=== PATIENT | male | born 1975 | race Caucasian/White ===

== ENCOUNTER 2024-09-10 11:42 | Emergency (ER) | payer MEDICAID, OTHER ==
[~2024-09-10] VITALS: Ht 177.8 cm; Wt 74.3 kg
--- NOTE | 2024-09-10 12:06 | ED.PDOC ---
General HPI Comments HPI: Poor Historian. 48-year-old male presents to the emergency department a elevation of acute on chronic right testicular discomfort pain. Patient denies any other urinary symptoms. Denies any history of STDs. Denies any trauma. He had this for few months but has been getting worse lately. Denies any penile discharge denies difficulty urinating. Vitals: temp: 99.3 RR: 16 02 sat: 97 % RA heart rate: 102 BP: 132.97 PMH: asthma, schizoaffective, bipolar PSH: denies social history: endorses tobacco use, denies ETOH use, denies drug use medications: denies allergies: NKDA REVIEW OF SYSTEMS: CONSTITUTIONAL: Denies acute: fever, diaphoresis, chills, generalized weakness. HEAD: Denies acute: headache, photophobia Eyes: Denies acute: Double vision, vision loss, eye pain, eye discharge. EARS: Denies acute: tinnitus, hearing loss, ear discharge, ear pain, THROAT: Denies acute: sore throat, swelling, difficulty swallowing , pain with swallo wing, change in voice. NECK: Denies acute: neck pain, neck swelling, stiff neck. HEART: Denies acute : chest pain, palpitations, LUNGS: Denies acute: SOB, wheezing, cough, hemoptysis ABDOMEN: Denies acute: abdominal pain, Nausea, Vomiting, diarrhea, melena , hematemesis, hematochezia SKIN: Denies acute: rash, redness, lesions, itchiness. EXTREMITIES: Denies acute: calf pain, numbness, tingling, weakness, denies pain in extremity. Denies acute: Low back pain. Neuro: Denies acute: focal neurological deficit, motor or sensory focal neurological deficit, tremors, seizure like activity, confusion, dizziness, change in mental status, loss of bowel or bladder function, cauda equina like symptoms. : Denies acute: dysuria, hematuria, flank pain, increase in urinary frequency. PSYCH: Denies acute: hallucination, suicidal ideation, homicidal ideation. PHYSICAL EXAM: General: no acute distress, awake and alert. Head: normocephalic, atraumatic. Neck: supple, trachea is midline, no swelling. Throat: Normal phonation. Eyes:, no erythema, no purulent discharge, no proptosis, no icterus. Heart: regular rate, regular rhythm, no significant murmur appreciated. Lungs: no apparent respiratory distress, Able to speak in full sentences. No wheezing, no rhonchi, no crackles. No stridors Clear to auscultation bilaterally. Abdomen: non tender to palpation, non distended, soft, no guarding, no rebound, + bowel sounds. : Normal-appearing external male genitalia circumcised. Palpation of the testicles is nontender to palpation. No crepitus. No erythema. No discharge. Patient points to a specific part of his right scrotal sac that is somewhat of a nodule of the scrotal skin itself not involving the testicle. Neuro: Awake, Alert, oriented to name, self, situation, follows commands GCS=15. Speech is normal. Skin: no petechia, no purpura, no cyanosis, non-pale, not jaundice. Lower extremities: --no - Pitting edema no deformity, no focal swelling, no calf TTP. Makes eye contact. moves all four extremities. Face: no apparent facial droop. Ambulating in the ED independently. Time Seen by MD: 11:47 Reviewed notes: Nurses Notes Allergies: Coded Allergies: NO KNOWN ALLERGIES (Unverified , 09/10/24) Information Source: Patient Mode of Arrival: Ambulatory Brought in by: self Past Medical History PAST MEDICAL HISTORY: Schizophrenia Surgical History: Denies all surgeries Family History Family History: Reviewed,noncontributory to illness Social History Smoker: Cigarettes Alcohol: Denies ETOH Use Drugs: Denies Drug Use Lives In: Home Was a procedure done? Was a procedure done?: No Differential Diagnosis Kidney stone (Female): N/A Penile/Scrotal: Epidiymitis, Foreign Body, Prostatitis, STD, UTI, Fractured Penis, Phimosis, Hydrocele, Testicular Torsion, Urolithiasis, Urinary Retention Urinary Problem (Male): Epididymitis, Prostatitis, Plelonephritis Other Differential Diagnosis Hydrocele, cyst, abscess, Guera gangrene, necrotizing fasciitis. X-Ray, Labs, Meds, VS Vital Signs Date Time Temp Pulse Resp B/P (MAP) Pulse Ox O2 Delivery O2 Flow Rate FiO2 09/10/24 16:42 98.2 97 19 137/90 (106) 99 98.2 09/10/24 15:03 98.2 100 19 148/93 (111) 99 98.2 11/19/24 12:18 99.3 102 16 132/97 (109) 97 Lab Test 09/10/24 13:59 09/10/24 13:29 09/10/24 12:05 Range/Units Lactic Acid Level 2.0 2.5 *H 0.4-2.0 mmol/L Urine Color Yellow Yellow Urine Clarity Clear Clear Urine pH 5.5 5.0-9.0 Urine Specific [place] 1.027 1.001-1.035 Urine Protein Trace H Negative Urine Ketones Trace Negative Urine Blood Negative Negative /uL Urine Nitrite Negative Negative Urine Bilirubin Negative Negative Urine Urobilinogen Normal Negative mg/dL Urine Leukocyte Esterase Negative Negative /uL Urine RBC 1 0 - 3 /hpf Urine WBC 1 0 - 3 /hpf Urine Squamous Epithelial Cells None seen <5 /hpf Urine Bacteria None seen None Seen /hpf Urine Mucus Few None Seen Urine Glucose Normal Normal mg/dL Chlamydia trachomatis (DIANE) Pending Neisseria gonorrhoeae (DIANE) Pending White Blood Count 7.7 4.4-10.8 10^3/uL Red Blood Count 4.93 4.5-5.90 10^6/uL Hemoglobin 14.3 13.5-17.5 g/dL Hematocrit 41.1 41.0-53.0 % Mean Corpuscular Volume 83.3 80.0-100.0 fL Mean Corpuscular Hemoglobin 29.0 28.0-32.0 pg Mean Corpuscular Hemoglobin Concent 34.8 32.0-36.0 g/dL Red Cell Distribution Width 13.0 11.8-14.3 % Platelet Count 255 140-450 10^3/uL Mean Platelet Volume 7.5 6.9-10.8 fL Neutrophils (%) (Auto) 56.3 37.0-80.0 % Lymphocytes (%) (Auto) 37.9 10.0-50.0 % Monocytes (%) (Auto) 5.2 0.0-12.0 % Eosinophils (%) (Auto) 0.2 0.0-7.0 % Basophils (%) (Auto) 0.4 0.0-2.0 % Neutrophils # (Auto) 4.3 1.6-8.6 10 ^3/uL Lymphocytes # (Auto) 2.9 0.4-5.4 10 ^3/uL Monocytes # (Auto) 0.4 0-1.3 10 ^3/uL Eosinophils # (Auto) 0 0-0.8 10 ^3/uL Basophils # (Auto) 0 0-0.2 10 ^3/uL Nucleated Red Blood Cells 0.1 % Sodium Level 141 136-145 mmol/L Potassium Level 3.2 L 3.5-5.1 mmol/L Chloride Level 107 98-107 mmol/L Carbon Dioxide Level 23 20-31 mmol/L Anion Gap 11 5-15 Blood Urea Nitrogen 8 L 9-23 mg/dL Creatinine 0.88 0.700-1.30 mg/dL Glomerular Filtration Rate Calc 107 >90 mL/min BUN/Creatinine Ratio 9.1 L 10.0-20.0 Serum Glucose 143 H 74-106 mg/dL Calcium Level 9.6 8.7-10.4 mg/dL Total Bilirubin 0.9 0.2-1.0 mg/dL Aspartate Amino Transferase (AST) 15 13-40 U/L Alanine Aminotransferase (ALT) 14 7-40 U/L Alkaline Phosphatase 66 46-116 U/L Total Protein 7.5 5.7-8.2 g/dL Albumin 4.7 3.2-4.8 g/dL Current Medications Medications (Trade) Dose Ordered Sig/Julius Route Start Time Stop Time Status Last Admin Potassium Chloride (Klor-Con Tablet) 40 meq ONCE ONCE PO 09/10/24 14:30 09/10/24 14:44 DC 09/10/24 15:59 Sodium Chloride 1,000 ml @ 1,000 mls/hr Q1H ONCE IV 09/10/24 14:30 09/10/24 15:29 DC 09/10/24 15:58 [place] [address] Ph: [phone] DIAGNOSTIC IMAGING Diagnostic Imaging Report : [id number] Signed PATIENT: KALYN TEMPLE ACCT: [id number] UNIT: [id number] : 1975 LOC: ER ROOM / BED: / AGE / SEX: 48 / M ADM STATUS: REG ER SERVICE 1216 ORDERING PHYSICIAN: LONG BOWERS DO PROCEDURE(s): TESUS - TESTICULAR ULTRASOUND REASON: testicular swelling ORDER NUMBER(s): [id number], ACCESSION NUMBER(s): [id number] ULTRASOUND OF SCROTUM AND CONTENTS. INDICATION: testicular swelling COMPARISON: None TECHNIQUE: Multiple real-time grayscale sonographic and color and duplex Doppler images of the scrotum and its contents were obtained. FINDINGS: The right testicle measures 4.0 x 3.0 x 3.1 cm. The left testicle measures 3.9 x 2.5 x 3.0 cm. Both testicles demonstrate homogeneous echotexture without evidence of focal lesions. The right epididymis measures 1.1 cm. The left epididymis measures 1.1 cm. Subsequent color and duplex Doppler interrogation of the testes demonstrated symmetric normal vascular flow to both testicles. No focal areas of hyperemia were seen. IMPRESSION: 1. No evidence of torsion, epididymitis, and/or orchitis. ATED BY: GUTIERREZ SWAN MD DICTATED DATE/TIME: 09/10/24 1248 SIGNED BY: GUTIERREZ SWAN MD SIGNED DATE/TIME: 09/10/24 1248 CC: Time of 1ST Reevaluation: 23:02 Reevaluation 1ST: Improved Patient Education/Counseling: Diagnosis, Treatment Family Education/Counseling: No Family Present Comments Patient presented with the above HPI.---testicular complaint---workup was initiated. patient was found with the above mentioned diagnosis. Patient was given: Fluids and potassium replacement Patient ED course and VS have been stabilized. Patient has been reassessed in the ED and remained in a stable condition. Pertinent incidental findings were discussed with the patient and/or family. Patient/family voices understanding and is agreeable with plan. Patient has been observed in the ED adequate length of time to insure improvement/stability. patient was discharged home in a stable condition. Urine chlamydia gonorrhea results are still pending All the reports of any imaging studies that were ordered by myself were reviewed by myself. Departure 1 Departure Time of Disposition: 15:17 Impression: Primary Impression: Scrotal cyst Additional Impression: Hypokalemia Disposition: 01 HOME / SELF CARE / HOMELESS Condition: Stable Additional Instructions: Additional discharge instructions: You MUST follow-up with your primary care/family doctor in 1 to 2 days. If you are unable to see your primary care/family doctor, please return to our emergency room for re-assessment and re-evaluation in 1 to 2 days. Return to the emergency room here in our facility or to the nearest ER [facility] if your symptoms change or worsen. CONSULTATIONS: you MUST Follow-up for consultation as soon as possible with: -urology in 1-2 days. Please call for appointment. You MUST call the consultants office yourself to make an appointment. You may need to arrange that through your insurance and/or your primary/family doctor. If you are unable to see the art sales consultant in 1 to 2 days, you must return to our emergency room (or any other ER of your choice) for re-assessment and re- evaluation. Adequate fluid hydration. Below is a copy of your radiological report for follow up: [place] [address] Ph: [phone] DIAGNOSTIC IMAGING Diagnostic Imaging Report : [id number] Signed PATIENT: KALYN TEMPLE ACCT: [id number] UNIT: [id number] : 1975 LOC: ER ROOM / BED: / AGE / SEX: 48 / M ADM STATUS: REG ER SERVICE 1216 ORDERING PHYSICIAN: LONG BOWERS DO PROCEDURE(s): TESUS - TESTICULAR ULTRASOUND REASON: testicular swelling ORDER NUMBER(s): [id number], ACCESSION NUMBER(s): [id number] ULTRASOUND OF SCROTUM AND CONTENTS. INDICATION: testicular swelling COMPARISON: None TECHNIQUE: Multiple real-time grayscale sonographic and color and duplex Doppler images of the scrotum and its contents were obtained. FINDINGS: The right testicle measures 4.0 x 3.0 x 3.1 cm. The left testicle measures 3.9 x 2.5 x 3.0 cm. Both testicles demonstrate homogeneous echotexture without evidence of focal lesions. The right epididymis measures 1.1 cm. The left epididymis measures 1.1 cm. Subsequent color and duplex Doppler interrogation of the testes demonstrated symmetric normal vascular flow to both testicles. No focal areas of hyperemia were seen. IMPRESSION: 1. No evidence of torsion, epididymitis, and/or orchitis. ATED BY: GUTIERREZ SWAN MD DICTATED DATE/TIME: 09/10/24 1248 SIGNED BY: GUTIERREZ SWAN MD SIGNED DATE/TIME: 09/10/24 1248 CC: Discharged With: Self Critical Care Note Critical Care Time?: No I personally scribed for LONG BOWERS DO ([email or web address]) on 09/10/24 at 12:06. Electronically submitted by Emil Hopkins ([facility] I personally scribed for LONG BOWERS DO ([email or web address]) on 09/10/24 at 13:05. Electronically submitted by Emil Hopkins ([facility] I personally scribed for LONG BOWERS DO ([email or web address]) on 09/10/24 at 13:12. Electronically submitted by Emil Hopkins ([facility]). I personally scribed for LONG BOWERS DO ([email or web address]) on 09/10/24 at 14:53. Elect ronically submitted by Emil Hopkins ([facility] LONG BOWERS DO Sep 10, 2024 12:06
[2024-09-10 12:31] LABS: Basophils # (auto) 0 10 ^3/uL (0-0.2); Basophils % (auto) 0.4 % (0.0-2.0); Eosinophils # (auto) 0 10 ^3/uL (0-0.8); Eosinophils % (auto) 0.2 % (0.0-7.0); Hematocrit 41.1 % (41.0-53.0); Hemoglobin 14.3 g/dL (13.5-17.5); Lymphocytes # (auto) 2.9 10 ^3/uL (0.4-5.4); Lymphocytes % (auto) 37.9 % (10.0-50.0); Mean Corpuscular Hgb Conc. 34.8 g/dL (32.0-36.0); Mean Corpuscular Volume 83.3 fL (80.0-100.0); Monocytes # (auto) 0.4 10 ^3/uL (0-1.3); Monocytes % (auto) 5.2 % (0.0-12.0); Neutrophils # (auto) 4.3 10 ^3/uL (1.6-8.6); Neutrophils % (auto) 56.3 % (37.0-80.0); Nucleated Red Blood Cells % 0.1 %; Platelet Count (auto) 255 10^3/uL (140-450); Red Blood Cells 4.93 10^6/uL (4.5-5.90); White Blood Cell 7.7 10^3/uL (4.4-10.8)
[2024-09-10 12:44] LABS: Albumin 4.7 g/dL (3.2-4.8); Alkaline Phosphatase 66 U/L (46-116); Anion Gap 11 (5-15); Aspartate Aminotransferase 15 U/L (13-40); BUN/Creatinine Ratio 9.1 (10.0-20.0); Blood Urea Nitrogen 8 mg/dL (9-23); Calcium 9.6 mg/dL (8.7-10.4); Carbon Dioxide 23 mmol/L (20-31); Chloride 107 mmol/L (98-107); Glucose 143 mg/dL (74-106); Potassium 3.2 mmol/L (3.5-5.1); Sodium 141 mmol/L (136-145)
[2024-09-10 12:45] LABS: Bilirubin, Total 0.9 mg/dL (0.2-1.0); Total Protein 7.5 g/dL (5.7-8.2)
--- NOTE | 2024-09-10 12:50 | DVH ---
ULTRASOUND OF SCROTUM AND CONTENTS. INDICATION: testicular swelling COMPARISON: None TECHNIQUE: Multiple real-time grayscale sonographic and color and duplex Doppler images of the scrotu m and its contents were obtained. FINDINGS: The right testicle measures 4.0 x 3.0 x 3.1 cm. The left testicle measures 3.9 x 2.5 x 3.0 cm. Both testicles demonstrate homogeneous echotexture without evidence of focal lesions. The right epididymis measures 1.1 cm. The left epididymis measures 1.1 cm. Subsequent color and duplex Doppler interrogation of the testes demonstrated symmetric normal vascula r flow to both testicles. No focal areas of hyperemia were seen. IMPRESSION: 1. No evidence of torsion, epididymitis, and/or orchitis.
[2024-09-10 12:52] LABS: Lactic Acid w/Reflex 2.5 mmol/L (0.4-2.0)
[2024-09-10 13:12] LABS: Alanine Aminotransferase 14 U/L (7-40)
[2024-09-10 13:51] LABS: Urine Bacteria None Seen /hpf (None Seen)
[2024-09-10 14:13] LABS: Urine Blood Negative /uL (Negative); Urine Clarity Clear (Clear); Urine Color Yellow (Yellow); Urine Mucus FEW (None Seen); Urine Protein, UAD TRACE (Negative); Urine Specific Gravity 1.027 (1.001-1.035); Urine Urobilinogen Normal (Negative); Urine WBC 1 /hpf (0 - 3); Urine pH 5.5 (5.0-9.0)
[2024-09-10] MEDS: SODIUM CHLORIDE 0.9% 1,000 ML IV ONE (15:58)
[2024-09-10] MEDS: POTASSIUM CHL 20 Meq TABLET PO ONE (15:59)
[2024-09-10 16:42] VITALS: BP 137/90; PULSE 97; RESP 19; TEMP 98.2; O2SAT 99
== END 2024-09-10 16:42 | disposition home or self-care (01) ==
LOC: ER 11:42
DX: L72.9 Follicular cyst of the skin and subcutaneous tissue, unspecified (principal); E87.6 Hypokalemia; J45.909 Unspecified asthma, uncomplicated; Z88.8 Allergy status to other drugs, medicaments and biological substances
CPT/HCPCS: 36415; 76870; 80053; 81001; 83605; 85025; 87491; 87591; 96360; 99284; J7030

== ENCOUNTER 2024-09-16 15:42 | Emergency (ER) | payer MEDICAID ==
[~2024-09-16] VITALS: Ht 177.8 cm; Wt 80.0 kg
--- NOTE | 2024-09-16 16:25 | ED.PDOC ---
Psychiatric HPI Comments PMHx: Asthma, schizophrenia, depression, bipolar disorder PSHx: sinus surgery Social hx: Pt drinks alcohol occasionally, smokes cigarettes, and uses meth. Meds: Zoloft Allergies: NKDA. Vitals T: 98.6F RR: 18 HR: 118 BP: 124/90 O2: 100% on RA HPI: Poor Historian. 48-year-old male brought in by ambulance because he called 911 for suicidal ideation with a plan to jump in traffic. Patient has history of mental illness his schizoaffective bipolar depression and he states he is compliant with his medications. Denies any visual hallucination but states having some auditory hallucinations. Patient used methamphetamine most recently last night. REVIEW OF SYSTEMS: CONSTITUTIONAL: Denies acute: fever, diaphoresis, chills, generalized weakness. HEAD: Denies acute: headache, photophobia Eyes: Denies acute: Double vision, vision loss, eye pain, eye discharge. EARS: Denies acute: tinnitus, hearing loss, ear discharge, ear pain, THROAT: Denies acute: sore throat, swelling, difficulty swallowing , pain with swallowing, change in voice. NECK: Denies acute: neck pain, neck swelling, stiff neck. HEART: Denies acute : chest pain, palpitations, LUNGS: Denies acute: SOB, wheezing, cough, hemoptysis ABDOMEN: Denies acute: abdominal pain, Nausea, Vomiting, diarrhea, melena , hematemesis, hematochezia SKIN: Denies acute: rash, redness, lesions, itchiness. EXTREMITIES: Denies acute: calf pain, numbness, tingling, weakness, denies pain in extremity. Denies acute: Low back pain. Neuro: Denies acute: focal neurological deficit, motor or sensory focal neurological deficit, tremors, seizure like activity, confusion, dizziness, change in mental status, loss of bowel or bladder function, cauda equina like symptoms. : Denies acute: dysuria, hematuria, flank pain, increase in urinary frequency. PSYCH: Denies acute: homicidal ideation. PHYSICAL EXAM: General: no acute distress, awake and alert. Head: normocephalic, atraumatic. Neck: supple, trachea is midline, no swelling. Throat: Normal phonation. Eyes:, no erythema, no purulent discharge, no proptosis, no icterus. Heart: regular tachycardia, no significant murmur appreciated. Lungs: no apparent respiratory distress, Able to speak in full sentences. No wheezing, no rhonchi, no crackles. No stridors Clear to auscultation bilaterally. Abdomen: non tender to palpation, non distended, soft, no guarding, no rebound, + bowel sounds. Neuro: Awake, Alert, oriented to name, self, situation, follows commands GCS=15. Speech is normal. Skin: no petechia, no purpura, no cyanosis, non-pale, not jaundice. Lower extremities: --no - Pitting edema no deformity, no focal swelling, no calf TTP. Makes eye contact. moves all four extremities. Face: no apparent facial droop. Chief Complaint: Suicidal Time Seen by MD: 15:45 Primary Care Provider: NONE Information Source: Patient, Emergency Med Personnel Mode of Arrival: EMS Severity: Unable to Care for Self Severity of Pain: None Severity of Mental Status: Moderate Severity of Symptoms: Moderate Timing: Hours Duration: Since onset Presents with: Depression, Suicidal Ideation, Other Attempt: Other Circumstance: Other Current substance abuse: ETOH, Amphetamines, Other History of: Depression, Schizophrenia, Bipolar Quality: Other Associated signs and symptoms: Depression, Hopeless, Anxiety, Amphetamines, Other Past Medical History PAST MEDICAL HISTORY: Asthma, Depression, Schizophrenia Past Medical History (Other): Bipolar Surgical History (Other): sinus surgery Family History Family History: Reviewed,noncontributory to illness Social History Smoker: Cigarettes Alcohol: Occasionally Drugs: Methamphetamine Lives In: Home Psych Differential Dx Psych. Differential Dx: Anxiety, Bipolar Disorder, Depression, Hopeless, N/A, No symptoms Reported, Panic Disorder, Schizoprenia, Sleepless, Suicidal OD Differential Dx: Alcohol Abuse, Conversion Disorder, Drug Overdose, Hallucinations, Homicidal, Panic Disorder, Personality Disorder, Schizophrenia, Substance Abuse, Suicidal Gesture X-Ray, Labs, Meds, VS Vital Signs Date Time Temp Pulse Resp B/P (MAP) Pulse Ox O2 Delivery O2 Flow Rate FiO2 09/16/24 19:30 98 16 99 Room Air* 0 21 09/16/24 19:30 98.0 98 16 127/88 (101) 99 98.0 09/16/24 15:55 98.6 118 18 124/90 (101) 100 Lab Test 09/16/24 22:39 09/16/24 17:41 09/16/24 15:54 Range/Units Lactic Acid Level 1.6 4.3 *H 0.4-2.0 mmol/L White Blood Count 11.2 #H 4.4-10.8 10^3/uL Red Blood Count 5.74 4.5-5.90 10^6/uL Hemoglobin 16.5 # 13.5-17.5 g/dL Hematocrit 49.2 # 41.0-53.0 % Mean Corpuscular Volume 85.6 80.0-100.0 fL Mean Corpuscular Hemoglobin 28.8 28.0-32.0 pg Mean Corpuscular Hemoglobin Concent 33.6 32.0-36.0 g/dL Red Cell Distribution Width 13.4 11.8-14.3 % Platelet Count 344 140-450 10^3/uL Mean Platelet Volume 7.3 6.9-10.8 fL Neutrophils (%) (Auto) 55.1 37.0-80.0 % Lymphocytes (%) (Auto) 37.2 10.0-50.0 % Monocytes (%) (Auto) 7.1 0.0-12.0 % Eosinophils (%) (Auto) 0.2 0.0-7.0 % Basophils (%) (Auto) 0.4 0.0-2.0 % Neutrophils # (Auto) 6.1 1.6-8.6 10 ^3/uL Lymphocytes # (Auto) 4.2 0.4-5.4 10 ^3/uL Monocytes # (Auto) 0.8 0-1.3 10 ^3/uL Eosinophils # (Auto) 0 0-0.8 10 ^3/uL Basophils # (Auto) 0 0-0.2 10 ^3/uL Nucleated Red Blood Cells 0.2 % Sodium Level 141 136-145 mmol/L Potassium Level 4.6 3.5-5.1 mmol/L Chloride Level 104 98-107 mmol/L Carbon Dioxide Level 22 20-31 mmol/L Anion Gap 15 5-15 Blood Urea Nitrogen 12 9-23 mg/dL Creatinine 1.35 H 0.700-1.30 mg/dL Glomerular Filtration Rate Calc 66 >90 mL/min BUN/Creatinine Ratio 8.9 L 10.0-20.0 Serum Glucose 98 74-106 mg/dL Calcium Level 11.0 H 8.7-10.4 mg/dL Magnesium Level 2.3 1.6-2.6 mg/dL Total Bilirubin 1.4 H 0.2-1.0 mg/dL Aspartate Amino Transferase (AST) 16 13-40 U/L Alanine Aminotransferase (ALT) 16 7-40 U/L Alkaline Phosphatase 84 46-116 U/L Troponin I High Sensitivity 3 L </=54 ng/L Total Protein 8.2 5.7-8.2 g/dL Albumin 5.3 H 3.2-4.8 g/dL Salicylates Level < 3.0 -30 mg/dL Acetaminophen Level < 2.0 L 10.0-20.0 UG/ML Urine Color Yellow Yellow Urine Clarity Clear Clear Urine pH 7.5 5.0-9.0 Urine Specific [place] 1.016 1.001-1.035 Urine Protein Trace H Negative Urine Ketones Trace Negative Urine Blood Negative Negative /uL Urine Nitrite Negative Negative Urine Bilirubin Negative Negative Urine Urobilinogen Normal Negative mg/dL Urine Leukocyte Esterase Negative Negative /uL Urine RBC 1 0 - 3 /hpf Urine WBC 4 0 - 3 /hpf Urine Squamous Epithelial Cells None seen <5 /hpf Urine Bacteria Few H None Seen /hpf Urine Hyaline Casts Few 0 - 2 /lpf Urine Glucose Normal Normal mg/dL Urine Opiates Screen Neg NEGATIVE Urine Fentanyl Screen Neg NEGATIVE Urine Barbiturates Screen Neg NEGATIVE Urine Phencyclidine Screen Neg NEGATIVE Urine Amphetamines Screen Pos NEGATIVE Urine Benzodiazepines Screen Neg NEGATIVE Urine Cocaine Screen Neg NEGATIVE Urine Cannabinoids Screen Neg NEGATIVE [place] [address] Ph: [phone] DIAGNOSTIC IMAGING Diagnostic Imaging Report : [id number] Signed PATIENT: KALYN TEMPLE ACCT: [id number] UNIT: [id number] : 1975 LOC: ER ROOM / BED: / AGE / SEX: 48 / M ADM STATUS: REG ER SERVICE 1546 ORDERING PHYSICIAN: LONG BOWERS DO PROCEDURE(s): CXRP - CHEST PORTABLE REASON: SI ORDER NUMBER(s): [id number], ACCESSION NUMBER(s): [id number] CHEST RADIOGRAPH Indication: SI Technique: Single frontal view of the chest was obtained Comparison: None FINDINGS: Lines and Tubes: None Lungs: No focal consolidation. Pleura: No effusion. No pneumothorax. Cardiomediastinal contours: Unremarkable Bones: No acute osseous abnormality. IMPRESSION: 1. No acute cardiopulmonary disease. ATED BY: DENVER ZUNIGA Jr., DO DICTATED DATE/TIME: 09/16/241633 SIGNED BY: DENVER ZUNIGA Jr., SIGNED DATE/TIME: 09/16/241633 CC: Time of 1ST Reevaluation: 16:30 Reevaluation 1ST: Unchanged Time of 2ND Reevaluation: 18:48 (Dr. Mohamud evaluated the patient and recommends keeping the patient on a hold 5150 for further psychiatric evaluation at a psychiatric facility. He recommends to start Abilify 5 mg b.i.d.) Time of 3RD Reevaluation: 22:48 (We have been unable to find Abilify in our computer order set. There is no inpatient pharmacy available at this hour.) Patient Education/Counseling: Diagnosis, Treatment Family Education/Counseling: No Family Present Comments Patient presented with the above HPI.---psychiatric evaluation---workup was initiated. patient was found with the above mentioned diagnosis. Patient was given: Fluids for his elevated lactic acid. Patient ED course and VS have been stabilized. Patient has been reassessed in the ED and remained in a stable condition. Patient was evaluated by tele psych. Patient has been medically cleared. Pertinent incidental findings were discussed with the patient and/or family. Patient/family voices understanding and is agreeable with plan. Patient has been observed in the ED adequate length of time to insure improvement/stability. patient was placed on a hold awaiting social service evaluation in the morning and 5150 hold and transferred to psychiatric facility for further evaluation and treatment. All the reports of any imaging studies that were ordered by myself were reviewed by myself. Care of this patient was transitioned to my colleague Dr. Nguyễn. Patient has been medically cleared. Change of Shift?: Yes (The care of this patient was transitioned to Dr. Nguyễn. Patient is awaiting social secretary in the morning and transfer to a psychiatric facility on a 5150 hold for suicidal ideation. ) Departure 1 Departure Time of Disposition: 16:23 Impression: Primary Impression: Suicidal ideation Additional Impressions: Methamphetamine abuse Homelessness Patient needs psychiatric hold for evaluation Disposition: 30 STILL A PATIENT Condition: Stable Discharged With: Self Critical Care Note Critical Care Time?: No I personally scribed for LONG BOWERS DO ([email or web address]) on 09/16/24 at 16:46. Electronically submitted by Nohemy Dwyer ([facility]). I personally scribed for LONG BOWERS DO ([email or web address]) on 09/16/24 at 16:52. Electronically submitted by Nohemy Dwyer ([facility]). LONG BOWERS DO Sep 16, 2024 16:25
--- NOTE | 2024-09-16 16:36 | DVH ---
CHEST RADIOGRAPH Indication: SI Technique: Single frontal view of the chest was obtained Comparison: None FINDINGS: Lines and Tubes: None Lungs: No focal consolidation. Pleura: No effusion. No pneumothorax. Cardiomediastinal contours: Unremarkable Bones: No acute osseous abnormality. IMPRESSION: 1. No acute cardiopulmonary disease.
[2024-09-16 17:05] LABS: Urine Bacteria FEW /hpf (None Seen); Urine Blood Negative /uL (Negative); Urine Clarity Clear (Clear); Urine Color Yellow (Yellow); Urine Hyaline Cast FEW /lpf (0 - 2); Urine Protein, UAD TRACE (Negative); Urine Specific Gravity 1.016 (1.001-1.035); Urine Urobilinogen Normal (Negative); Urine WBC 4 /hpf (0 - 3); Urine pH 7.5 (5.0-9.0)
[2024-09-16 17:18] LABS: Amphetamine Screen, Urine Pos (NEGATIVE); Barbiturate Scree,Urine Neg (NEGATIVE); Benzodiazephine Screen, Urine Neg (NEGATIVE); Cocaine Screen, Urine Neg (NEGATIVE); Opiate Scree,Urine Neg (NEGATIVE); Phencyclidine Screen, Urine Neg (NEGATIVE)
[2024-09-16 17:19] LABS: Cannabinoid Screen, Urine Neg (NEGATIVE)
[2024-09-16 18:25] LABS: Basophils # (auto) 0 10 ^3/uL (0-0.2); Basophils % (auto) 0.4 % (0.0-2.0); Eosinophils # (auto) 0 10 ^3/uL (0-0.8); Eosinophils % (auto) 0.2 % (0.0-7.0); Hematocrit 49.2 % (41.0-53.0); Hemoglobin 16.5 g/dL (13.5-17.5); Lymphocytes # (auto) 4.2 10 ^3/uL (0.4-5.4); Lymphocytes % (auto) 37.2 % (10.0-50.0); Mean Corpuscular Hemoglobin 28.8 pg (28.0-32.0); Mean Corpuscular Hgb Conc. 33.6 g/dL (32.0-36.0); Mean Corpuscular Volume 85.6 fL (80.0-100.0); Monocytes # (auto) 0.8 10 ^3/uL (0-1.3); Monocytes % (auto) 7.1 % (0.0-12.0); Neutrophils # (auto) 6.1 10 ^3/uL (1.6-8.6); Neutrophils % (auto) 55.1 % (37.0-80.0); Nucleated Red Blood Cells % 0.2 %; Platelet Count (auto) 344 10^3/uL (140-450); Red Blood Cells 5.74 10^6/uL (4.5-5.90); Red Cell Distribution Width 13.4 % (11.8-14.3); White Blood Cell 11.2 10^3/uL (4.4-10.8)
[2024-09-16 18:49] LABS: Alanine Aminotransferase 16 U/L (7-40); Albumin 5.3 g/dL (3.2-4.8); Alkaline Phosphatase 84 U/L (46-116); Aspartate Aminotransferase 16 U/L (13-40); BUN/Creatinine Ratio 8.9 (10.0-20.0); Blood Urea Nitrogen 12 mg/dL (9-23); Carbon Dioxide 22 mmol/L (20-31); Glucose 98 mg/dL (74-106); Magnesium 2.3 mg/dL (1.6-2.6)
[2024-09-16 18:50] LABS: Bilirubin, Total 1.4 mg/dL (0.2-1.0); Total Protein 8.2 g/dL (5.7-8.2)
--- NOTE | 2024-09-16 18:50 | DVHINCON2 ---
Date of Service if different f: Sep 16, 2024 Time of Service: 18:27 Consultation ([facility]) Labs Laboratory Tests Test 09/16/24 15:54 09/16/24 17:41 Urine Color Yellow (Yellow) Urine Clarity Clear (Clear) Urine pH 7.5 (5.0-9.0) Urine Specific Mcintosh 1.016 (1.001-1.035) Urine Protein Trace (Negative) Urine Ketones Trace (Negative) Urine Blood Negative /uL (Negative) Urine Nitrite Negative (Negative) Urine Bilirubin Negative (Negative) Urine Urobilinogen Normal mg/dL (Negative) Urine Leukocyte Esterase Negative /uL (Negative) Urine RBC 1 /hpf (0 - 3) Urine WBC 4 /hpf (0 - 3) Urine Squamous Epithelial Cells None seen /hpf (<5) Urine Bacteria Few /hpf (None Seen) Urine Hyaline Casts Few /lpf (0 - 2) Urine Glucose Normal mg/dL (Normal) Urine Opiates Screen Neg (NEGATIVE) Urine Fentanyl Screen Neg (NEGATIVE) Urine Barbiturates Screen Neg (NEGATIVE) Urine Phencyclidine Screen Neg (NEGATIVE) Urine Amphetamines Screen Pos (NEGATIVE) Urine Benzodiazepines Screen Neg (NEGATIVE) Urine Cocaine Screen Neg (NEGATIVE) Urine Cannabinoids Screen Neg (NEGATIVE) Appearance: Stated age Psychomotor activity: WNL Behavioral: Cooperative Eye contact: Appropriate Speech: WNL Affect: Mood Congruent Mood: Depressed Thought processes: Linear/Goal-directed Thought content: Paranoid, Hallucinations Suicidal ideations: Present Homicidal ideations: Absent Orientation: Person, Place, Time, Situation Memory intact: Recent Intellect: Average Abstractability: WNL Concentration: Adequate Attention: Adequate Judgement: Poor Insight: Poor Vitals Vital Signs Date Time Temp Pulse Resp B/P (MAP) Pulse Ox O2 Delivery O2 Flow Rate FiO2 09/16/24 15:55 98.6 118 18 124/90 (101) 100 Treatment plan discussed: With staff Medication adjusted: Yes Labs ordered: No Psychotherapy provided: No Type: 72 hour hold History of Present Illness Reason for Consult : psychiatric evaluation for suicidal ideation PER ED PHYSICIAN: 48-year-old male brought in by ambulance because he called 911 for suicidal ideation with a plan to jump in traffic. Patient has history of mental illness his schizoaffective bipolar depression and he states he is compliant with his medications. Denies any visual hallucination but states having some auditory hallucinations. Patient used methamphetamine most recently last night. PSYCHIATRIST HPI: The patient was seen and evaluated at [facility] ED via telepsychiatry platform. 48 yr old male reported he is having thoughts of suicide and hearing auditory hallucinations. He got angry with the voices and wanted to run into traffic. He said he hears the voices every day and they worsen after he uses meth. He last used meth last night. He stated he feels unsafe being at his sober living and feels like he will either kill himself or use again. He denied having homicidal ideation and visual hallucinations. Past Psychiatric History : Diagnosed with schizoaffective, bipolar type. Sees [facility] psychiatrist. Hospitalized multiple times. Three past suicide attempts by overdose, walking in traffic twice. Past Medical History: asthma Current Medications: Zoloft 100mg qam, Dulera Substance use: Drinks alcohol rarely. Meth-uses "as often as I can", about three times a week. Occasional MJ use. Denied other substance use. Social History : Released from 16 month [facility] stay [facility] on Jul 29, 2024. He was homeless afterwards and then transferred to a sober living. He left the sober living today because he couldn't take it any more. Diagnosis: SCHIZOAFFECTIVE DISORDER, BIPOLAR TYPE; METH USE DISORDER Formulation: This 48 yr old male appears to suffer from schizoaffective disorder and meth use disorder and is currently suicidal and a high risk for self harm. Suicide risk is elevated for meth users in the first couple weeks of withdrawal. He may benefit from starting an antipsychotic and admission to a behavioral health unit. He meets criteria for psychiatric hospitalization on basis of danger to self. Plan: 1. Transfer to behavioral health unit when bed available. 2. [facility] 5150 involuntary hold for danger to self 3. Medication: Recommend starting Abilify 5mg BID. 4. Please contact psychiatry if further follow up or reevaluation is desired. 5. Case discussed with ED physician Dr Akers. Assessment/Diagnosis/Plan Reviewed: Labs, Medications, Previous Orders UBALDO ALARCON MD Sep 16, 2024 18:29
[2024-09-16 18:56] LABS: Lactic Acid w/Reflex 4.3 mmol/L (0.4-2.0)
[2024-09-16 19:10] LABS: Acetaminophen < 2.0 UG/ML (10.0-20.0)
[2024-09-16 19:15] LABS: Anion Gap 15 (5-15); Chloride 104 mmol/L (98-107); Potassium 4.6 mmol/L (3.5-5.1); Sodium 141 mmol/L (136-145)
[2024-09-16 19:26] LABS: Salicylate < 3.0 mg/dL (-30)
[2024-09-16 19:30] VITALS: PULSE 98; RESP 16; O2SAT 99
[2024-09-16] MEDS: SODIUM CHLORIDE 0.9% 1,000 ML IV ONE ×2 (19:38→19:40)
[2024-09-17 08:50] VITALS: PULSE 94; RESP 16; O2SAT 99
--- NOTE | 2024-09-17 12:41 | ED.PDOC ---
Departure 1 Departure Time of Disposition: 12:41 (Patient is still resting comfortably in signed a voluntary hold. We will continue to look for placement at this time.) Impression: Primary Impression: Suicidal ideation Additional Impressions: Patient needs psychiatric hold for evaluation Homelessness Methamphetamine abuse Disposition: 30 STILL A PATIENT Condition: Stable Discharged With: Self OTTONIEL SINGH MD Sep 17, 2024 12:41
[2024-09-17 19:57] VITALS: PULSE 83; RESP 16; O2SAT 97
[2024-09-17] MEDS: ACETAMINOPHEN 325 MG TAB PO ONE (20:30)
[2024-09-18 08:05] VITALS: PULSE 78; RESP 16; O2SAT 98
[2024-09-18] MEDS: ACETAMINOPHEN 325 MG TAB PO ONE (16:55)
[2024-09-18 19:30] VITALS: PULSE 86; RESP 16; O2SAT 100
[2024-09-18] MEDS ORDERED: guaiFENesin-DM 100/10mg/5ml SYR PO ONE (20:00)
[2024-09-18] MEDS: guaiFENesin-DM 100/10mg/5ml SYR PO ONE (20:03)
[2024-09-18] MEDS: traZODone HCL 50 MG TAB PO ONE (22:19)
[2024-09-18] MEDS: IBUPROFEN 800 MG TAB PO ONE (22:20)
[2024-09-19] MEDS: TEMAZEPAM 15 MG CAP PO ONE (00:43)
[2024-09-19] MEDS: QUEtiapine FUMARATE 100 MG TAB PO ONE (02:22)
[2024-09-19 10:09] VITALS: RESP 16; O2SAT 96
[2024-09-19] MEDS: BENZTROPINE MESY 0.5 MG TAB PO ONE (10:17)
[2024-09-19] MEDS: OLANZapine 5 MG TAB PO ONE (10:17)
[2024-09-19] MEDS: ACETAMINOPHEN 325 MG TAB PO ONE (14:18)
--- NOTE | 2024-09-20 06:56 | ED.PDOC ---
Departure 1 Departure Time of Disposition: 12:41 (Patient is resting comfortably and accepted to psychiatric facility. Patient is currently awaiting transportation which should occur this morning at 8:00 a.m.) Impression: Primary Impression: Suicidal ideation Additional Impressions: Patient needs psychiatric hold for evaluation Homelessness Methamphetamine abuse Dis[facility]: [facility] Condition: Serious Discharged With: Self OTTONIEL SINGH MD Sep 20, 2024 06:56
[2024-09-20 07:57] VITALS: BP 153/83; PULSE 112; RESP 16; TEMP 98.3; O2SAT 99
== END 2024-09-20 07:55 ==
LOC: EDBD 15:42 → ER 15:42
DX: R45.851 Suicidal ideations (principal); J45.909 Unspecified asthma, uncomplicated; F25.0 Schizoaffective disorder, bipolar type; F17.210 Nicotine dependence, cigarettes, uncomplicated; F15.10 Other stimulant abuse, uncomplicated; Z59.00 Homelessness unspecified; Z79.51 Long term (current) use of inhaled steroids; Z79.899 Other long term (current) drug therapy
CPT/HCPCS: 36415; 71045; 80053; 80307; 80329; 81001; 83605; 83735; 84484; 85025; 96360; 96361; 99285; J7030